=== PATIENT | female | born 1965 | race African-American/Black ===

== ENCOUNTER 2017-12-31 15:12 | Emergency (ER) | payer OTHER, BC ==
[~2017-12-31] VITALS: Ht 167.6 cm; Wt 90.0 kg
[~2017-12-31 15:12] MED LIST: AMLODIPINE10 MG PO; APAP OR; ASPIRIN EC81 MG PO; AZITHROMYCIN500 MG PO; CIPROFLOXACN500 MG PO; CLARITIN-D1 TA4 PO; CLEOCIN150 MG OR; EFFEXOR37.5 MG PO; FLEXERIL OR; FLEXERIL PO; HYZAAR1 TAB PO; LORTAB 5 OR; LOVASTATIN20 MG PO; LYRICA25 MG PO; LYRICA50 MG PO; METFORMIN500 MG PO; METO50TA52 OR; METOPROL TAR50 MG OR; METOPROL TAR50 MG PO; METRONIDAZOLE500 MG PO; ONDANSETRON4 MG PO; SAVELLA25 MG PO; TAM75CAP OR; TRAMADOL HCL50 MG PO; ULTRAM50 M1 OR; ULTRAM50 M1 PO; ZESTRIL OR; [UNRECOGNIZED DRUG - CODE] MT; [UNRECOGNIZED DRUG - OTHER] OR
[2017-12-31] MEDS ORDERED: MOTRIN400 MG PO (16:47)
[2017-12-31 16:55] VITALS: BP 163/94
== END 2017-12-31 16:56 | disposition home or self-care (01) | DRG 556 ==
LOC: ED 15:12
DX: M25.561 Pain in right knee (principal); I10 Essential (primary) hypertension; W01.0XXA Fall on same level from slipping, tripping and stumbling without subsequent striking against object, initial encounter; Y93.89 Activity, other specified; Y92.219 Unspecified school as the place of occurrence of the external cause; Y99.0 Civilian activity done for income or pay

== ENCOUNTER 2019-08-14 19:44 | Emergency (ER) | payer BC ==
[~2019-08-14] VITALS: Ht 167.6 cm; Wt 91.8 kg
[~2019-08-14 19:44] MED LIST changes: +DICYCLOMINE HCL10 MG PO; +GABAPENTIN400 M2 PO; +HYDROCHLOROTH12.5 MG PO; +MELOXICAM15 MG PO; +MOTRIN400 MG PO; +POTASSIUM CHLO20 ME1 PO; +PRAVASTATIN SOD20 MG PO
[2019-08-14] MEDS ORDERED: ORPHENADRINE C100 M1 PO (20:14)
[2019-08-14] MEDS ORDERED: IBUPROFEN600 MG PO (20:14)
[2019-08-14 21:30] VITALS: BP 142/90
== END 2019-08-14 21:42 | disposition home or self-care (01) | DRG 563 ==
LOC: ED 19:44
DX: S43.401A Unspecified sprain of right shoulder joint, initial encounter (principal); I10 Essential (primary) hypertension; X50.3XXA Overexertion from repetitive movements, initial encounter; Y93.89 Activity, other specified; Y92.009 Unspecified place in unspecified non-institutional (private) residence as the place of occurrence of the external cause

== ENCOUNTER 2022-09-19 19:02 | Emergency (ER) | payer BC ==
[~2022-09-19] VITALS: Ht 167.6 cm; Wt 85.0 kg
[~2022-09-19 19:02] MED LIST changes: +IBUPROFEN600 MG PO; +ORPHENADRINE C100 M1 PO
[2022-09-19] MEDS ORDERED: CYCLOBENZAPRINE10 MG PO (20:27)
[2022-09-19] MEDS ORDERED: ULTRAM50 M1 PO (20:27)
[2022-09-19 21:10] VITALS: BP 136/80
== END 2022-09-19 21:10 | disposition home or self-care (01) | DRG 558 ==
LOC: ED 19:02
DX: M76.891 Other specified enthesopathies of right lower limb, excluding foot (principal); X50.1XXA Overexertion from prolonged static or awkward postures, initial encounter; Y93.02 Activity, running

== ENCOUNTER 2023-01-24 20:17 | Emergency (ER) | payer BC ==
[2023-01-24] VITALS (8 sets, daily range): BP systolic 121–153; BP diastolic 79–99
[~2023-01-24] VITALS: Ht 167.6 cm; Wt 87.8 kg
[~2023-01-24 20:17] MED LIST changes: +CYCLOBENZAPRINE10 MG PO
[2023-01-24 20:58] LABS: URINE BILIRUBIN - DIPSTICK NEGATIVE (NEGATIVE); URINE BLOOD DIPSTICK TRACE-LYSED (NEGATIVE); URINE COLOR YELLOW; URINE GLUCOSE - DIPSTICK NEGATIVE (NEGATIVE); URINE KETONE TRACE mg/dL (NEGATIVE); URINE LEUK ESTERASE NEGATIVE (NEGATIVE); URINE NITRITE - DIPSTICK NEGATIVE (Negative); URINE PROTEIN - DIPSTICK TRACE mg/dL (NEG-TRACE); URINE SPECIFIC GRAVITY 1.025
[2023-01-24 21:25] LABS: BASO% 0.3 % (0-3); EOS% 1.1 % (0-8); HEMATOCRIT 34.2 % (37.0-47.0); HEMOGLOBIN 10.6 g/dl (12.0-16.0); IMMATURE GRANULOCYTES 0.1 % (0.0-5.0); LYMPH% 25.2 % (15-41); MEAN CELL VOLUME 82.4 fL CALC (80.0-100.0); MEAN CORPUSCULAR HGB 25.5 pG CALC (26.0-32.0); MONO% 7.9 % (2-13); NEUT# 5.12 thou/uL (2.00-7.15); NEUT% 65.4 % (42-76); RED BLOOD COUNT 4.15 mill/uL (4.20-5.60); RED CELL DISTRI WIDTH 14.5 % (11.5-15.5)
[2023-01-24 21:40] LABS: ALBUMIN 3.8 g/dL (3.2-5.0); ALKALINE PHOSPHATASE 196 u/l (38-126); ANION GAP 12 (6-22 (CALC)); BILIRUBIN, TOTAL 0.4 mg/dL (0.02-1.3); BUN 17 mg/dL (7-17); BUN/CREATININE RATIO 16 (12-20 (CALC)); CARBON DIOXIDE 25 mmol/l (22-30); CHLORIDE 106 mmol/l (95-108); GFR FOR AFR.AMER. > 60 ML/MIN (>=60 (CALC)); GFR OTHER RACES 57 ML/MIN (>=60 (CALC)); LIPASE 39 u/l (23-300); POTASSIUM 3.5 mmol/l (3.5-5.1); SGOT/AST 85 u/l (14-36); SODIUM 140 mmol/l (137-146)
[2023-01-25] MEDS ORDERED: CIPROFLOXACN500 MG PO (01:07)
[2023-01-25] MEDS ORDERED: METRONIDAZOLE500 MG PO (01:07)
[2023-01-25 01:57] VITALS: BP 125/79
== END 2023-01-25 01:58 | disposition home or self-care (01) | DRG 392 ==
LOC: ED 20:17
PROVIDERS: Family Medicine
DX: K57.32 Diverticulitis of large intestine without perforation or abscess without bleeding (principal); I10 Essential (primary) hypertension; M79.7 Fibromyalgia
CPT/HCPCS: Q9967

== ENCOUNTER 2023-08-11 16:38 | Emergency (ER) | payer BC ==
[2023-08-11] VITALS (16 sets, daily range): BP systolic 124–153; BP diastolic 78–100
[~2023-08-11] VITALS: Ht 167.6 cm; Wt 83.6 kg
[2023-08-11] MEDS ORDERED: NAPROXEN500 MG PO (20:28)
[2023-08-11] MEDS ORDERED: TRAMADOL HYDROC50 M1 PO (20:28)
[2023-08-11] MEDS ORDERED: PREDNISONE20 MG PO (20:28)
[2023-08-11] MEDS ORDERED: LORTAB 5/3255 MG PO (20:41)
== END 2023-08-11 20:53 | disposition home or self-care (01) | DRG 554 ==
LOC: ED 16:38
DX: M17.11 Unilateral primary osteoarthritis, right knee (principal); I10 Essential (primary) hypertension; M79.7 Fibromyalgia

== ENCOUNTER 2023-12-19 15:49 | Emergency (ER) | payer BC ==
[~2023-12-19] VITALS: Ht 167.6 cm; Wt 87.0 kg
[~2023-12-19 15:49] MED LIST changes: +LORTAB 5/3255 MG PO; +NAPROXEN500 MG PO; +PREDNISONE20 MG PO; +TRAMADOL HYDROC50 M1 PO
[2023-12-19 15:59] VITALS: BP 197/110
[2023-12-19 16:00] VITALS: BP 196/104
[2023-12-19 16:31] VITALS: BP 162/85
[2023-12-19 17:01] VITALS: BP 154/87
[2023-12-19] MEDS ORDERED: METHOCARBAMOL500 MG PO (17:16)
[2023-12-19] MEDS ORDERED: NAPROXEN500 MG PO (17:16)
[2023-12-19] MEDS ORDERED: PREDNISONE20 MG PO (17:16)
[2023-12-19 17:20] VITALS: BP 154/87
== END 2023-12-19 17:48 | disposition home or self-care (01) | DRG 552 ==
LOC: ED 15:49
DX: S16.1XXA Strain of muscle, fascia and tendon at neck level, initial encounter (principal); I10 Essential (primary) hypertension; X50.0XXA Overexertion from strenuous movement or load, initial encounter; Y93.89 Activity, other specified; Z98.1 Arthrodesis status

== ENCOUNTER 2024-12-23 05:39 | Observation (INO) | payer BC ==
[2024-12-23] VITALS (23 sets, daily range): BP systolic 101–162; BP diastolic 48–99
[~2024-12-23] VITALS: Ht 167.6 cm; Wt 89.0 kg
[~2024-12-23 05:39] MED LIST changes: +METHOCARBAMOL500 MG PO
[2024-12-23] MEDS ORDERED: SODIUM CHLORIDE 0.9% 1,000 ML IV ONE ×2 (06:30→07:50)
[2024-12-23] MEDS ORDERED: ONDANSETRON HCl 4 MG/2 ML SDV IV ONE (06:30)
[2024-12-23] MEDS ORDERED: MORPHINE SULFATE 4 MG/ML VIAL IV ONE (06:30)
[2024-12-23] MEDS ORDERED: FAMOTIDINE 20 MG/TAB PO ONE (06:45)
[2024-12-23 07:15] LABS: URINE BILIRUBIN - DIPSTICK Negative (NEGATIVE); URINE BLOOD DIPSTICK Trace-intact (NEGATIVE); URINE GLUCOSE - DIPSTICK Negative (NEGATIVE); URINE KETONE Negative (NEGATIVE); URINE LEUK ESTERASE Negative (NEGATIVE); URINE NITRITE - DIPSTICK Negative (Negative); URINE PROTEIN - DIPSTICK Negative (NEG-TRACE); URINE UROBILINOGEN - DIPSTICK 0.2 E.U./dL (0.2)
[2024-12-23 07:19] LABS: URINE COLOR Yellow
[2024-12-23 07:24] LABS: ALBUMIN 4.3 g/dL (3.2-5.0); ANION GAP 14 (6-22 (CALC)); BUN 25 mg/dL (7-17); BUN/CREATININE RATIO 23 (12-20 (CALC)); CARBON DIOXIDE 26 mmol/l (22-30); CHLORIDE 101 mmol/l (95-108); CREATININE 1.1 mg/dL (0.5-1.0); ESTIMATED GFR 58 ML/MIN (>=90 (CALC)); LIPASE 45 u/l (23-300); POTASSIUM 3.1 mmol/l (3.5-5.1); SGOT/AST 30 u/l (14-36); SODIUM 138 mmol/l (137-146); TOTAL PROTEIN 7.5 g/dL (6.3-8.2)
[2024-12-23 07:30] LABS: BASO% 0.2 % (0-3); EOS% 0.3 % (0-8); HEMATOCRIT 38.1 % (37.0-47.0); HEMOGLOBIN 12.3 g/dl (12.0-16.0); IMMATURE GRANULOCYTES 0.2 % (0.0-5.0); LYMPH% 5.7 % (15-41); MEAN CELL VOLUME 84.9 fL CALC (80.0-100.0); MEAN CORPUSCULAR HGB 27.4 pG CALC (26.0-32.0); MEAN CORPUSCULAR HGB CONC 32.3 g/dL CAL (32.0-36.0); MONO% 3.8 % (2-13); NEUT# 5.96 thou/uL (2.00-7.15); NEUT% 89.8 % (42-76); RED BLOOD COUNT 4.49 mill/uL (4.20-5.60)
[2024-12-23 07:31] LABS: ALKALINE PHOSPHATASE 65 u/l (38-126); BILIRUBIN, TOTAL 0.9 mg/dL (0.02-1.3)
[2024-12-23] MEDS ORDERED: NEBIVOLOL (08:55)
[2024-12-23] MEDS ORDERED: [UNRECOGNIZED DRUG - OTHER] (08:55)
[2024-12-23] MEDS ORDERED: HYZAAR1 TA2 PO (09:05)
[2024-12-23] MEDS ORDERED: ALENDRONATE SOD70 MG PO (09:07)
[2024-12-23] MEDS ORDERED: AMLODIPINE BESY10 MG PO (09:08)
[2024-12-23] MEDS ORDERED: CARBAMAZEPINE100 M2 (09:09)
[2024-12-23] MEDS ORDERED: SODIUM CHLORIDE 0.9% 1,000 ML IV PRN (11:15)
[2024-12-23] MEDS ORDERED: ACETAMINOPHEN 325 MG/TAB PO PRN (11:15)
[2024-12-23] MEDS ORDERED: MAGNESIUM HYDROXIDE 30 ML UDC PO PRN (11:15)
[2024-12-23] MEDS ORDERED: ONDANSETRON HCl 4 MG/2 ML SDV IV PRN (15:55)
[2024-12-23] MEDS ORDERED: POTASSIUM CHLORIDE 20 MEQ/TAB PO SCH (16:30)
[2024-12-23] MEDS ORDERED: PANTOPRAZOLE SODIUM Sesquihydr 40 MG/TAB PO SCH (16:30)
[2024-12-23] MEDS ORDERED: ENOXAPARIN SODIUM 40 MG/0.4 ML SYR SC SCH (21:00)
[2024-12-24 03:59] VITALS: BP 116/58
[2024-12-24 07:00] LABS: POTASSIUM 3.7 mmol/l (3.5-5.1)
[2024-12-24 07:05] LABS: ALBUMIN 2.7 g/dL (3.2-5.0); BILIRUBIN, TOTAL 0.4 mg/dL (0.02-1.3); MAGNESIUM 1.3 mg/dL (1.6-2.3); TOTAL PROTEIN 5.4 g/dL (6.3-8.2)
[2024-12-24 07:07] LABS: BASO% 0.3 % (0-3); EOS% 0.7 % (0-8); IMMATURE GRANULOCYTES 0.3 % (0.0-5.0); LYMPH% 29.4 % (15-41); MEAN CELL VOLUME 85.3 fL CALC (80.0-100.0); MEAN CORPUSCULAR HGB 27.5 pG CALC (26.0-32.0); MEAN CORPUSCULAR HGB CONC 32.2 g/dL CAL (32.0-36.0); MONO% 14.7 % (2-13); NEUT# 1.6 thou/uL (2.00-7.15); NEUT% 54.6 % (42-76); RED BLOOD COUNT 3.75 mill/uL (4.20-5.60); RED CELL DISTRI WIDTH 14.2 % (11.5-15.5)
[2024-12-24 07:11] LABS: HEMOGLOBIN 10.3 g/dl (12.0-16.0)
[2024-12-24 07:45] VITALS: BP 101/58
[2024-12-24] MEDS ORDERED: MAGNESIUM SULFATE HEPTAHYDRATE 100 ML IV SCH (09:00)
[2024-12-24 18:36] VITALS: BP 112/62
[2024-12-25 04:19] VITALS: BP 115/66
[2024-12-25 05:55] LABS: EOS% 1.8 % (0-8); HEMOGLOBIN 11.2 g/dl (12.0-16.0); IMMATURE GRANULOCYTES 0.3 % (0.0-5.0); LYMPH% 33.4 % (15-41); MEAN CELL VOLUME 86.6 fL CALC (80.0-100.0); MEAN CORPUSCULAR HGB 27.7 pG CALC (26.0-32.0); MONO% 11.6 % (2-13); NEUT# 2.09 thou/uL (2.00-7.15); NEUT% 52.9 % (42-76); RED BLOOD COUNT 4.04 mill/uL (4.20-5.60); RED CELL DISTRI WIDTH 14.4 % (11.5-15.5)
[2024-12-25 06:15] LABS: ALBUMIN 3.2 g/dL (3.2-5.0); BILIRUBIN, TOTAL 0.3 mg/dL (0.02-1.3); CREATININE 0.8 mg/dL (0.5-1.0); POTASSIUM 3.4 mmol/l (3.5-5.1); TOTAL PROTEIN 5.9 g/dL (6.3-8.2)
[2024-12-25 08:06] VITALS: BP 110/62
[2024-12-25] MEDS ORDERED: POTASSIUM CHLORIDE 20MEQ 100 ML IV SCH (11:30)
[2024-12-25 14:52] VITALS: BP 119/66
[2024-12-25] MEDS ORDERED: carBAMazepine 200 MG TAB PO PRN (21:20)
[2024-12-25] MEDS ORDERED: traMADol HCL 50 MG/TAB PO PRN (21:20)
[2024-12-26 04:12] VITALS: BP 123/71
[2024-12-26] MEDS ORDERED: carBAMazepine 200 MG TAB PO PRN (05:40)
[2024-12-26 06:03] LABS: BASO% 0.4 % (0-3); EOS% 3.2 % (0-8); HEMATOCRIT 33.7 % (37.0-47.0); HEMOGLOBIN 10.5 g/dl (12.0-16.0); IMMATURE GRANULOCYTES 0.4 % (0.0-5.0); LYMPH% 45.4 % (15-41); MEAN CORPUSCULAR HGB 26.8 pG CALC (26.0-32.0); MEAN CORPUSCULAR HGB CONC 31.2 g/dL CAL (32.0-36.0); MONO% 9.2 % (2-13); NEUT# 1.18 thou/uL (2.00-7.15); NEUT% 41.4 % (42-76); RED BLOOD COUNT 3.92 mill/uL (4.20-5.60); RED CELL DISTRI WIDTH 14.5 % (11.5-15.5)
[2024-12-26 06:15] LABS: ALBUMIN 2.9 g/dL (3.2-5.0); BILIRUBIN, TOTAL 0.4 mg/dL (0.02-1.3); CREATININE 0.8 mg/dL (0.5-1.0); MAGNESIUM 1.5 mg/dL (1.6-2.3); POTASSIUM 3.7 mmol/l (3.5-5.1); TOTAL PROTEIN 5.5 g/dL (6.3-8.2)
[2024-12-26 07:04] VITALS: BP 111/63
[2024-12-26] MEDS ORDERED: CIPROFLOXACN500 MG PO (10:57)
[2024-12-26] MEDS ORDERED: METRONIDAZOLE500 MG PO (10:58)
[2024-12-26] MEDS ORDERED: ONDANSETRON4 MG PO (15:59)
== END 2024-12-26 13:53 | disposition home or self-care (01) | DRG 872 ==
LOC: ED 05:39 → ED-I 07:30 → ED 08:42 → MS2 08:43
PROVIDERS: Internal Medicine; Nurse Practitioner Family; ADMIT Internal Medicine; ATTEND Internal Medicine
DX: A41.9 Sepsis, unspecified organism (principal); A08.11 Acute gastroenteropathy due to Norwalk agent; N17.9 Acute kidney failure, unspecified; E86.0 Dehydration; E87.6 Hypokalemia; E83.42 Hypomagnesemia; I10 Essential (primary) hypertension; E78.5 Hyperlipidemia, unspecified; Z98.890 Other specified postprocedural states; Z90.49 Acquired absence of other specified parts of digestive tract; Z87.19 Personal history of other diseases of the digestive system
CPT/HCPCS: G0378; J0744; J1650; J1836; J2405; J3475; J3480; Q9967